=== PATIENT | male | born 1970 | race American Indian/Alaskan Native ===

== ENCOUNTER 2017-08-04 15:15 | Inpatient (IN) | payer SELFPAY ==
--- NOTE | 2017-08-04 15:54 | Cat Scan Report ---
HEAD CT WITHOUT CONTRAST INDICATION: Neurologic deficits less than 6 hours or symptoms present upon awakening. 98N. COMPARISON: None similar at this institution. FINDINGS: Noncontrast head CT demonstrates symmetric ventricles and sulci without acute or recent infarct, hemorrhage, mass effect or midline shift. No abnormal extra-axial fluid collections. Posterior fossa structures and basilar cisterns within normal limits. Moderate bilateral ethmoid and mild bilateral maxillary, sphenoid and some frontal sinus mucosal thickening. Intact calvarium. Normal scalp soft tissues. Normal imaged eye globes. Partially empty sella. CONCLUSION: No definite acute intracranial CT abnormality with pansinusitis, as above. MRI is more sensitive for detection of acute infarct and may be useful for further evaluation in the setting of a focal neurologic deficit. I phoned the above results to Dr. Pierre in the ER, 3:45 PM, 08/04/2017. Thank you for the opportunity to participate in this patient's care.
[2017-08-04] MEDS ORDERED: REGLAN IV ONE (15:55)
[2017-08-04] MEDS ORDERED: APRESOLINE IV ONE (15:55)
--- NOTE | 2017-08-04 15:55 | Emergency Department Report ---
ED Neuro Deficit HPI - General Chief Complaint: Neuro Symptoms/Deficit Stated Complaint: RIGHT SIDE NUMBNESS Time Seen by Provider: 08/04/17 15:38 Source: patient, RN notes reviewed Mode of arrival: Ambulatory Limitations: No Limitations - History of Present Illness Initial Comments: This is a 46-year-old male who was previously unknown to this provider. He has a past medical history of hypertension, elevated blood pressure. The patient presents to the ER with a complaint of right-sided weakness and numbness, facial droop, headache, chest pain, and abdominal numbness. The headache is frontal, started this morning, is not sudden or thunderclap in nature, not maximal in intensity within the first hour. Patient then reports that at approximately 2:15 PM, he developed right-sided facial droop, right arm numbness, right leg numbness, central chest pain that did not radiate to the back, arms, neck, and abdominal "numbness." No recent aspirin use, no recent cocaine use, symptoms have been constant, did not radiate anywhere, and have no exacerbating or relieving factors. He denies recent trauma, denies recent chiropractic manipulation. -: Sudden Location: right face, right arm, right leg Presenting Symptoms: Present: Weak/Paralyzed One Side. Absent: Sudden, Severe Headache, Blurred/Loss of Vision, Facial Droop/Numbness, Unable to Speak Clearly , Altered Mental Status History of same: No Place: home Severity: moderate Quality: tingling Improves With: none Worsens With: none On Anticoagulants: No Context: sudden onset Associated Symptoms: chest pain, headaches. denies: cough, diaphoresis, fever/ chills, loss of appetite, malise, nausea/vomiting, vertigo, seizures, shortness of breath, syncope, weakness - Related Data Home Medications: Home Medications Medication Instructions Recorded Confirmed Last Taken No Known Home Medications [No 08/04/17 08/04/17 Unknown Reported Home Medications] Allergies/Adverse Reactions: Allergies Allergy/AdvReac Type Severity Reaction Status Date / Time No Known Allergies Allergy Unverified 08/04/17 15:25 ED Review of Systems ROS: Stated complaint: RIGHT SIDE NUMBNESS Other details as noted in HPI Constitutional: denies: fever Eyes: denies: eye discharge, vision change ENT: denies: epistaxis Respiratory: denies: cough Cardiovascular: chest pain Gastrointestinal: abdominal pain Musculoskeletal: denies: back pain Neurological: headache, weakness, numbness, paresthesias Psychiatric: as per HPI ED Past Medical Hx - Past Medical History Hx Hypertension: Yes - Surgical History Past Surgical History?: No - Social History Smoking Status: Current Every Day Smoker Substance Use Type: Alcohol - Medications Home Medications: Home Medications Medication Instructions Recorded Confirmed Last Taken Type No Known Home Medications [No 08/04/17 08/04/17 Unknown History Reported Home Medications] ED Neuro Physical Exam - General Limitations: No Limitations General appearance: alert, in no apparent distress Suspected Stroke: Yes - Head Head exam: Present: atraumatic, normocephalic - Eye Eye exam: Present: normal appearance, PERRL, EOMI, other (visual acuity intact to finger counting, color perception, reading at a close distance). Absent: nystagmus - ENT ENT exam: Present: normal exam, normal orophraynx, mucous membranes moist, normal external ear exam - Neck Neck exam: Present: normal inspection, full ROM, other (there is no carotid bruit) - Respiratory Respiratory exam: Present: normal lung sounds bilaterally. Absent: respiratory distress - Cardiovascular Cardiovascular Exam: Present: regular rate, normal rhythm, normal heart sounds. Absent: bradycardia, tachycardia, irregular rhythm, systolic murmur, diastolic murmur, rubs, gallop - GI/Abdominal GI/Abdominal exam: Present: soft, normal bowel sounds. Absent: distended, tenderness, guarding, rebound, rigid, pulsatile mass - Rectal Rectal exam: Present: deferred - Extremities Exam Extremities exam: Present: normal inspection, full ROM, normal capillary refill , other (2+ pulses noted in the bilateral upper and lower extremities). Absent : tenderness, pedal edema, joint swelling, calf tenderness - Back Exam Back exam: Present: normal inspection, full ROM. Absent: tenderness, CVA tenderness (R), paraspinal tenderness, vertebral tenderness - Neurological Exam Neurological exam: Present: alert, oriented X3, motor sensory deficit (there is 4.5-5 strength right upper extremity, right lower extremity. Sensation decreased to light touch right upper extremity, right lower extremity). Absent : CN II-XII intact (there is right-sided facial droop. Extraocular movements are intact. Phonates normally. Hearing intact bilaterally. Shoulder shrug intact bilaterally. Tongue is midline. Sensation intact to light touch in the bilateral V1, V2, V3 distribution. Symmetric wrinkling of the forehead bilaterally) - NIHSS Assessment Interval: Baseline 1a. Level of Consciousness: alert 1b. LOC Questions: answers correctly 1c. LOC Commands: performs tasks correctly 2. Best Gaze: normal 3. Visual: no visual loss 4. Facial Palsy: partial paralysis 5b. Motor Arm Right: drift 5a. Motor Arm Left: no drift 6a. Motor Leg Left: no drift 6b. Motor Leg Right: no drift 7. Limb Ataxia: absent 8. Sensory: mild/moderate sensory loss 9. Best Language: no aphasia 10. Dysarthria: normal 11. Extinction/Inattention: no abnormality Total Score: 4 Stroke Severity: Minor Stroke - Psychiatric Psychiatric exam: Present: normal affect, normal mood - Skin Skin exam: Present: warm, dry, intact, normal color. Absent: rash ED Course Vital Signs 08/04/17 08/04/17 08/04/17 15:18 15:47 15:55 Temperature 98 F Pulse Rate 80 84 Respiratory 18 19 16 Rate Blood Pressure 159/114 O2 Sat by Pulse 100 99 99 Oximetry 08/04/17 08/04/17 08/04/17 16:01 16:15 16:54 Temperature Pulse Rate 102 H 77 Respiratory 17 12 Rate Blood Pressure 142/106 141/94 141/94 O2 Sat by Pulse 95 98 98 Oximetry 08/04/17 08/04/17 08/04/17 17:00 17:15 17:30 Temperature Pulse Rate Respiratory Rate Blood Pressure 134/98 158/102 163/102 O2 Sat by Pulse 98 99 100 Oximetry 08/04/17 17:45 Temperature Pulse Rate Respiratory Rate Blood Pressure 141/94 O2 Sat by Pulse 97 Oximetry - Reevaluation(s) Reevaluation #1: 08/04/17 16:29 Differential diagnosis, including but not limited to: Aortic dissection, carotid disease, carotid dissection, acute coronary syndrome, ischemic stroke, hemorrhagic stroke, complex migraine Assessment and plan: 46-year-old male with a primary complaint of headache, right-sided weakness and numbness, right-sided facial droop, also endorses chest pain, abdominal numbness and discomfort. Has no pulmonary embolus or DVT risk factors. EKG is pending at this time. Equal pulses in the bilateral upper and lower extremities. Given that patient is endorsing chest pain, abdominal discomfort with neurologic symptoms, aortic dissection must be excluded. Given that aortic dissection has not been excluded with the available imaging, he is not a TPA candidate or thrombolysis candidate. I have discussed the patient's physical exam findings and case with the consulting neurologist, Dr. OLSON; She will interview the patient via the stroke robot, but recommends emergent CT angiogram of the head and neck, and also agrees with plan to obtain CT imaging of the chest abdomen and pelvis. I have made numerous phone calls the labs requested expedite creatinine so patient may get the CT angiogram. I'm currently awaiting results of the CTA. I am also awaiting results of the patient's EKG. His headache will be treated with Reglan and his hypertension will be treated with hydralazine. Reevaluation #2: 08/04/17 17:[address] interpretation of the head and neck. Contacted the [facility] radiology group, they report they have not received the images. Contacted CAT scan, and I have requested again that images be sent over in an expedited fashion. Reevaluation #3: 08/04/17 18:00 X-ray chest negative. Neurology, Dr. suh, interviewing patient. cta reads still pending Reevaluation #4: 08/04/17 18:37 CT angiogram of the head and neck essentially negative. Patient refused/ declined TPA after risks, benefits were discussed with Dr. Olson, consulting stroke neurology. She recommends admission for further evaluation. Aspirin ordered. Reevaluation #5: 08/04/17 19:14 CT scan of the chest, abdomen, pelvis negative for aortic dissection. Aspirin ordered, Dr. Pedro accepted the patient to the medical service. - Lab Data Result diagrams: 08/04/17 15:45 08/04/17 15:45 Lab Results 08/04/17 08/04/17 08/04/17 Range/Units 15:45 15:45 15:45 WBC 8.5 (4.5-11.0) K/mm3 RBC 4.78 (3.65-5.03) M/mm3 Hgb 15.7 H (11.8-15.2) gm/dl Hct 46.9 H (35.5-45.6) % MCV 98 H (84-94) fl MCH 33 H (28-32) pg MCHC 34 (32-34) % RDW 14.5 (13.2-15.2) % Plt Count 271 (140-440) K/mm3 Lymph % (Auto) 29.9 (13.4-35.0) % [place] % (Auto) 7.7 H (0.0-7.3) % Eos % (Auto) 4.3 (0.0-4.3) % Baso % (Auto) 0.4 (0.0-1.8) % Lymph # 2.6 (1.2-5.4) K/mm3 [place] # 0.7 (0.0-0.8) K/mm3 Eos # 0.4 (0.0-0.4) K/mm3 Baso # 0.0 (0.0-0.1) K/mm3 Seg Neutrophils % 57.7 (40.0-70.0) % Seg Neutrophils # 4.9 (1.8-7.7) K/mm3 PT 12.1 L (12.2-14.9) Sec. INR 0.86 L (0.87-1.13) APTT 26.9 (24.2-36.6) Sec. Thrombin Time (15.1-19.6) Sec. Sodium 139 (137-145) mmol/L Potassium 4.0 (3.6-5.0) mmol/L Chloride 100.7 (98-107) mmol/L Carbon Dioxide 26 (22-30) mmol/L Anion Gap 16 mmol/L BUN 8 L (9-20) mg/dL Creatinine 1.2 (0.8-1.5) mg/dL Estimated GFR > 60 ml/min BUN/Creatinine Ratio 7 % Glucose 99 (75-100) mg/dL Calcium 9.5 (8.4-10.2) mg/dL Troponin T < 0.010 (0.00-0.029) ng/mL 08/04/17 Range/Units 15:45 WBC (4.5-11.0) K/mm3 RBC (3.65-5.03) M/mm3 Hgb (11.8-15.2) gm/dl Hct (35.5-45.6) % MCV (84-94) fl MCH (28-32) pg MCHC (32-34) % RDW (13.2-15.2) % Plt Count (140-440) K/mm3 Lymph % (Auto) (13.4-35.0) % [place] % (Auto) (0.0-7.3) % Eos % (Auto) (0.0-4.3) % Baso % (Auto) (0.0-1.8) % Lymph # (1.2-5.4) K/mm3 [place] # (0.0-0.8) K/mm3 Eos # (0.0-0.4) K/mm3 Baso # (0.0-0.1) K/mm3 Seg Neutrophils % (40.0-70.0) % Seg Neutrophils # (1.8-7.7) K/mm3 PT (12.2-14.9) Sec. INR (0.87-1.13) APTT (24.2-36.6) Sec. Thrombin Time 16.0 (15.1-19.6) Sec. Sodium (137-145) mmol/L Potassium (3.6-5.0) mmol/L Chloride (98-107) mmol/L Carbon Dioxide (22-30) mmol/L Anion Gap mmol/L BUN (9-20) mg/dL Creatinine (0.8-1.5) mg/dL Estimated GFR ml/min BUN/Creatinine Ratio % Glucose (75-100) mg/dL Calcium (8.4-10.2) mg/dL Troponin T (0.00-0.029) ng/mL - EKG Data -: EKG Interpreted by Me EKG shows normal: sinus rhythm Rate: normal When compared to previous EKG there are: previous EKG unavailable 08/04/17 19:15 Sinus, 70 bpm, borderline left axis deviation, benign early repolarization, abnormal EKG, normal intervals, not consistent with a STEMI. There is no prior for comparison. - Radiology Data Radiology results: pending, report reviewed interpreted by me: X-ray of the chest, interpreted by myself: No acute disease Noncontrast CT scan of the brain is negative for acute disease - Core Measures Measure Exclusions: not indicated - Thrombolytic Inclusion/Exclusion Thrombolytic Inclusion Criteria: Ischemic Stroke Onset< 3h Critical care attestation.: If time is entered above; I have spent that time in minutes in the direct care of this critically ill patient, excluding procedure time. ED Disposition Clinical Impression: Facial droop, Numbness on right side Chest pain Qualifiers: Chest pain type: other chest pain Qualified Code(s): R07.89 - Other chest pain Disposition: DC-09 OP ADMIT IP TO THIS HOSP Is pt being admited?: Yes Does the pt Need Aspirin: Yes Condition: Good Instructions: Chest Pain (ED) Referrals: PRIMARY CARE, [Primary Care Provider] - 3-5 Days
[2017-08-04 15:58] LABS: Basophils % (Auto) 0.4 % (0.0-1.8); Eosinophils # (Auto) 0.4 K/mm3 (0.0-0.4); Eosinophils % (Auto) 4.3 % (0.0-4.3); Hematocrit 46.9 % (35.5-45.6); Hemoglobin 15.7 gm/dl (11.8-15.2); Lymphocytes # (Auto) 2.6 K/mm3 (1.2-5.4); Lymphocytes % (Auto) 29.9 % (13.4-35.0); Mean Corpuscular HGB Conc 34 % (32-34); Mean Corpuscular Hemoglobin 33 pg (28-32); Mean Corpuscular Volume 98 fl (84-94); Monocytes # (Auto) 0.7 K/mm3 (0.0-0.8); Monocytes % (Auto) 7.7 % (0.0-7.3); Platelet Count 271 K/mm3 (140-440); Red Blood Count 4.78 M/mm3 (3.65-5.03); Red Cell Distribution Width 14.5 % (13.2-15.2)
[2017-08-04 16:09] LABS: INR 0.86 (0.87-1.13)
[2017-08-04 16:11] LABS: Partial Thromboplastin Time 26.9 Sec. (24.2-36.6)
[2017-08-04 16:16] LABS: BUN/Creatinine Ratio 7; Blood Urea Nitrogen 8 mg/dL (9-20); Calcium 9.5 mg/dL (8.4-10.2); Hemolysis Index 17
--- NOTE | 2017-08-04 17:55 | XRay Report ---
FINAL REPORT EXAM: XR CHEST 1V AP HISTORY: cp htn TECHNIQUE: AP portable view of the chest PRIORS: None. FINDINGS: Lines, tubes, and devices: N/A Lungs and pleura: Trachea is normal in position. Lungs are clear of infiltrate, pleural effusion, vascular congestion, or pneumothorax. Cardiomediastinal silhouette: Cardiac and mediastinal silhouettes are unremarkable. Other: Bony structures are intact. IMPRESSION: No acute cardiopulmonary process seen.
[2017-08-04] MEDS ORDERED: REGLAN ONE (18:09)
--- NOTE | 2017-08-04 18:22 | Cat Scan Report ---
FINAL REPORT PROCEDURE: CT ANGIO HEAD AND NECK TECHNIQUE: Computerized tomographic angiography of the head and neck was performed after the IV injection of iodinated nonionic contrast including image processing. The image data was postprocessed using 2-dimensional multiplanar reformatted (MPR) and 3-dimensional (MIP and/or volume rendered) techniques. HISTORY: CVA with dissection. COMPARISON: No prior studies are available for comparison. FINDINGS: Sinuses: Scattered ethmoid sinusitis. Mild scattered bilateral maxillary mucoperiosteal thickening. Non vascular cervical structures: Lucencies in the right frontal bone likely arachnoid granulations. Mild multilevel degenerative changes of the cervical spine, most evident at C4-5. Cerebrum: No evidence of hemorrhage, acute ischemia or mass. Cerebellum: No evidence of hemorrhage, acute ischemia or mass. Subarachnoid spaces and ventricles: Normal. Aortic arch: Artifact from the SVC limits evaluation, there are scattered areas of linear low-attenuation signal intensity with slightly more complex low-attenuation signal intensity about the visualized ascending and descending thoracic aorta. Right carotid artery: Normal. Left carotid artery: Normal. Vertebral arteries: Artifact limits evaluation of the proximal left vertebral artery. Aneurysms: None. Dural sinuses: Normal. IMPRESSION: No CTA evidence of significant stenosis, aneurysm, or dissection in the vessels of the head and neck. Artifact limits evaluation of the proximal left vertebral artery. Artifact from the SVC limits evaluation, there are scattered areas of linear low signal intensity in the thoracic aorta with slightly more complex low signal intensity about the descending thoracic aorta. Findings likely artifact, recommend CTA of the chest if there is continued clinical concern for aortic pathology/subtle dissection. Mild sinusitis. Critical test stroke protocol discussed by telephone with Dr. Rizzo at 5:15 p.m. central standard time on 08/04/2017.
[2017-08-04] MEDS ORDERED: BABY ASPIRIN PO ONE (18:39)
--- NOTE | 2017-08-04 18:54 | Cat Scan Report ---
FINAL REPORT PROCEDURE: CT ABDOMEN PELVIS W CON TECHNIQUE: Computerized axial tomography of the abdomen and pelvis was performed after the IV injection of iodinated nonionic contrast. HISTORY: abd pain, numbness, cva COMPARISON: No prior studies are available for comparison. FINDINGS: Lower Lung onofre: There is minimal dependent atelectasis. Lung bases otherwise are clear. Upper Abdomen: There is subtle increased density dependently in the gallbladder. I cannot exclude sludge or gallstones. Gallbladder is otherwise unremarkable. The liver showed no focal abnormalities. The adrenal glands, the pancreas and spleen are unremarkable. Kidneys, Ureters and Urinary bladder: No abnormalities are seen. Urinary bladder is only partially filled. Retroperitoneum: Abdominal aorta appears normal. Nonspecific subcentimeter lymph nodes are seen in the retroperitoneum. No pathologically enlarged lymph nodes are identified. Bowel: No focal bowel loop abnormalities are seen. No evidence of bowel obstruction ascites or free intraperitoneal gas. Normal-appearing appendix is seen in the right lower quadrant. Minimal umbilical hernia visualized containing adipose tissue. No herniated loops of bowel are seen. Reproductive organs: Prostate gland does not appear to be enlarged. Other: No acute bony abnormalities are identified. IMPRESSION: Subtle increased density dependently in the gallbladder. I cannot exclude sludge or noncalcified gallstones. Gallbladder ultrasound may be helpful for further evaluation. No acute abnormalities are identified.
--- NOTE | 2017-08-04 19:05 | Cat Scan Report ---
FINAL REPORT PROCEDURE: CT CHEST W CON TECHNIQUE: Computerized axial tomography of the chest was performed without contrast material. This study is performed without intravenous contrast and the sensitivity for pathology, including neoplasms, adenopathy, abscess, pulmonary embolism and aortic dissection, is reduced. HISTORY: cp with neurologic symptoms COMPARISON: No prior studies are available for comparison. TECHNICAL QUALITY: Satisfactory. FINDINGS: Pericardium: No evidence of pericardial effusion. Thoracic aorta: There is mild aneurysmal dilatation of the ascending thoracic aorta measuring 4.4 x 4.1 centimeter. No dissection is visualized. Coronary arteries: Coronary arteries appear to show minimal calcification indicating atherosclerotic disease. Mediastinum and hilar regions: Nonspecific subcentimeter lymph nodes are visualized. No pathologically enlarged lymph nodes or masses are identified. Lung Arshad: There is minimal dependent atelectasis. The lungs are otherwise clear. Upper abdomen: Subtle increased density seen in the dependent portion the gallbladder. This could be an artifact from beam hardening. Gallbladder is otherwise unremarkable. Upper abdomen shows no acute abnormality. Other: No acute bony abnormalities are seen. IMPRESSION: Mild aneurysmal dilatation ascending thoracic aorta. No dissection is seen. Minimal calcified plaquing seen in the coronary arteries indicating atherosclerotic disease. Minimal dependent atelectasis visualized. Lungs otherwise are clear. Subtle increased density in the dependent portion the gallbladder. I cannot exclude sludge or noncalcified gallstones. Gallbladder ultrasound may be helpful for further evaluation..
[2017-08-04] MEDS ORDERED: DULCOLAX PR PRN (22:29)
[2017-08-04] MEDS ORDERED: ZOFRAN IV PRN (22:29)
[2017-08-04] MEDS ORDERED: PHENERGAN PR PRN (22:29)
[2017-08-04] MEDS ORDERED: REGLAN PO PRN (22:29)
[2017-08-04] MEDS ORDERED: AMBIEN PO PRN (22:29)
[2017-08-04] MEDS ORDERED: SODIUM CHLORIDE FLUSH SYRINGE 10 ML IV PRN (22:29)
[2017-08-04] MEDS ORDERED: TYLENOL PO PRN (22:29)
[2017-08-04] MEDS ORDERED: NORCO 5/325 PO PRN (22:29)
[2017-08-04] MEDS ORDERED: MILK OF MAGNESIA PO PRN (22:29)
[2017-08-04] MEDS ORDERED: APRESOLINE IV PRN (22:36)
--- NOTE | 2017-08-05 00:20 | History and Physical Report ---
History of Present Illness Date of examination: 08/04/17 Date of admission: 08/04/17 22:37 Chief complaint: right-sided numbness History of present illness: Patient is a 46 year old -[place] male, who presented with right-sided numbness, which started 45 minutes prior to presentation to the ED. He has associated headaches and dizziness. He denies slurred speech, facial drooping, extremity weakness, nausea, vomiting, abnormal gait, syncope or loss of consciousness. No chest pain, shortness of breath or palpitation Past History Past Medical History: hypertension Past Surgical History: No surgical history Social history: smoking (for 25 years), other (admits to occasional alcohol use , but denies illicit drug use) Family history: other (reviewed and noncontributory) Medications and Allergies Allergies Allergy/AdvReac Type Severity Reaction Status Date / Time No Known Allergies Allergy Unverified 08/04/17 15:25 Home Medications Medication Instructions Recorded Confirmed Last Taken Type No Known Home Medications [No 08/04/17 08/04/17 Unknown History Reported Home Medications] Active Meds: Active Medications Acetaminophen (Tylenol) 650 mg PO Q4H PRN PRN Reason: Pain, Mild (1-3) Acetaminophen/Hydrocodone Bitart ([place] 5/325) 2 each PO Q6H PRN PRN Reason: Pain, Moderate (4-6) Aspirin (Aspirin) 325 mg PO QDAY [facility] Bisacodyl (Dulcolax) 10 mg LA QDAY PRN PRN Reason: Constipation Hydralazine HCl (Apresoline) 10 mg IV Q4H PRN PRN Reason: Blood Pressure Magnesium Hydroxide (Milk Of Magnesia) 30 ml PO Q4H PRN PRN Reason: Constipation Metoclopramide HCl (Reglan) 10 mg PO Q6H PRN PRN Reason: Nausea And Vomiting Ondansetron HCl (Zofran) 4 mg IV Q8H PRN PRN Reason: N/V unrelieved by Reglan Promethazine HCl (Phenergan) 25 mg LA Q6H PRN PRN Reason: Nausea And Vomiting Sodium Chloride (Sodium Chloride Flush Syringe 10 Ml) 10 ml IV PRN PRN PRN Reason: LINE FLUSH Zolpidem Tartrate (Ambien) 5 mg PO QHS PRN PRN Reason: Insomnia Review of Systems All systems: negative (except as documented in the HPI, all other systems were reviewed and negative) Exam - Constitutional Vitals: Temp Pulse Resp BP Pulse Ox 98 F 82 19 139/90 91 08/04/17 15:18 08/04/17 23:00 08/04/17 23:00 08/04/17 23:00 08/04/17 23:00 General appearance: Present: no acute distress, well-nourished - EENT Eyes: Present: PERRL, EOM intact ENT: hearing intact, clear oral mucosa - Neck Neck: Present: supple, normal ROM - Respiratory Respiratory effort: normal Respiratory: bilateral: CTA - Cardiovascular Rhythm: regular Heart Sounds: Present: S1 & S2 - Extremities Extremities: pulses symmetrical, No edema Peripheral Pulses: within normal limits - Abdominal General gastrointestinal: Present: soft, non-tender, non-distended, normal bowel sounds - Integumentary Integumentary: Present: warm, dry - Musculoskeletal Musculoskeletal: gait normal, strength equal bilaterally - Psychiatric Psychiatric: appropriate mood/affect, intact judgment & insight - Neurologic Neurologic: CNII-XII intact, moves all extremities Results - Labs CBC & Chem 7: 08/04/17 15:45 08/04/17 15:45 Labs: Laboratory Last Values WBC 8.5 K/mm3 (4.5-11.0) 08/04/17 15:45 RBC 4.78 M/mm3 (3.65-5.03) 08/04/17 15:45 Hgb 15.7 gm/dl (11.8-15.2) H 08/04/17 15:45 Hct 46.9 % (35.5-45.6) H 08/04/17 15:45 MCV 98 fl (84-94) H 08/04/17 15:45 MCH 33 pg (28-32) H 08/04/17 15:45 MCHC 34 % (32-34) 08/04/17 15:45 RDW 14.5 % (13.2-15.2) 08/04/17 15:45 Plt Count 271 K/mm3 (140-440) 08/04/17 15:45 Lymph % (Auto) 29.9 % (13.4-35.0) 08/04/17 15:45 [place] % (Auto) 7.7 % (0.0-7.3) H 08/04/17 15:45 Eos % (Auto) 4.3 % (0.0-4.3) 08/04/17 15:45 Baso % (Auto) 0.4 % (0.0-1.8) 08/04/17 15:45 Lymph # 2.6 K/mm3 (1.2-5.4) 08/04/17 15:45 [place] # 0.7 K/mm3 (0.0-0.8) 08/04/17 15:45 Eos # 0.4 K/mm3 (0.0-0.4) 08/04/17 15:45 Baso # 0.0 K/mm3 (0.0-0.1) 08/04/17 15:45 Seg Neutrophils % 57.7 % (40.0-70.0) 08/04/17 15:45 Seg Neutrophils # 4.9 K/mm3 (1.8-7.7) 08/04/17 15:45 PT 12.1 Sec. (12.2-14.9) L 08/04/17 15:45 INR 0.86 (0.87-1.13) L 08/04/17 15:45 APTT 26.9 Sec. (24.2-36.6) 08/04/17 15:45 Thrombin Time 16.0 Sec. (15.1-19.6) 08/04/17 15:45 Sodium 139 mmol/L (137-145) 08/04/17 15:45 Potassium 4.0 mmol/L (3.6-5.0) 08/04/17 15:45 Chloride 100.7 mmol/L (98-107) 08/04/17 15:45 Carbon Dioxide 26 mmol/L (22-30) 08/04/17 15:45 Anion Gap 16 mmol/L 08/04/17 15:45 BUN 8 mg/dL (9-20) L 08/04/17 15:45 Creatinine 1.2 mg/dL (0.8-1.5) 08/04/17 15:45 Estimated GFR > 60 ml/min 08/04/17 15:45 BUN/Creatinine Ratio 7 % 08/04/17 15:45 Glucose 99 mg/dL (75-100) 08/04/17 15:45 Calcium 9.5 mg/dL (8.4-10.2) 08/04/17 15:45 Troponin T < 0.010 ng/mL (0.00-0.029) 08/04/17 15:45 Assessment and Plan Assessment and plan: Right-sided paresthesia, rule out acute stroke -Start stroke protocol -Do further investigative testing with MRI brain, carotid doppler ultrasound and echocardiogram Aneurysmal dilatation of ascending thoracic aorta measuring 4.44.1 per imaging -For outpatient follow-up Uncontrolled hypertension -Start prn antihypertensive per stroke protocol Prophylaxis -DVT prophylaxis with SCD 38 minutes spent in coordinating care
[2017-08-05 00:24] LABS: Amphetamine Screen,Urine PRESUMPTIVE NEGATIVE; Benzodiazepines Screen,Urine PRESUMPTIVE NEGATIVE; Cocaine Screen,Urine PRESUMPTIVE NEGATIVE; Methadone Screen,Urine PRESUMPTIVE NEGATIVE; Opiate Screen,Urine PRESUMPTIVE NEGATIVE
[2017-08-05 00:42] LABS: Cannabinoid Screen,Urine PRESUMPTIVE POSITIVE
[2017-08-05 05:23] LABS: Chol/HDL Ratio 3.21 %
--- NOTE | 2017-08-05 08:25 | Event Note ---
Date: 08/05/17 Patient admitted today for right-sided weakness appeared to be well-developed for acute stroke. MRI reports of the brain, pending. CTA showed evidence of aneurysmal dilatation of the ascending aorta. We will obtain a vascular surgical consult
[2017-08-05] MEDS: ASPIRIN PO SCH (11:18)
--- NOTE | 2017-08-05 11:43 | Magnetic Resonance Report ---
MRI BRAIN WITHOUT CONTRAST: 08/04/17 22:37:00 CLINICAL: Stroke. TECHNIQUE: Axial diffusion, T1, T2, FLAIR, gradient echo T2*, and sagittal T1 sequences on a 1.5 Mikaela magnet. FINDINGS: The ventricles and sulci are normal for age. A single tiny focus of restricted diffusion involves the left postcentral gyrus. It demonstrates very mild hyperintense signal on FLAIR. No other restricted diffusion. No mass or mass effect. A single right occipital lobe chronic micro-bleed on the gradient echo sequence. No acute or subacute hemorrhage, edema or extra-axial collection. Normal pituitary and optic chiasm. The brainstem and cerebellum are normal. Intact vascular flow voids. Moderate bilateral ethmoid sinusitis. Mild bilateral maxillary equal periosteal thickening. The orbits, and soft tissues are normal. Normal calvarium and skull base. IMPRESSION: 1. A single tiny nonhemorrhagic subacute left parietal lobe cortical infarct involving the postcentral gyrus. 2. A single tiny right occipital lobe chronic microbleed. 3. Sinusitis.
--- NOTE | 2017-08-05 16:33 | Event Note ---
Date: 08/05/17 vascular surgery consulted for ascending thoracic aneurysm 4.4cm. This is generally CT surgery area of expertise, however, ascending thoracic aorta is called aneurysmal >4.5cm. This patient does not need any urgent vascular or CT surgery intervention. He may benefit from f/u with CT surgery as an outpatient.
[2017-08-06 07:10] LABS: Basophils % (Auto) 0.2 % (0.0-1.8); Eosinophils # (Auto) 0.3 K/mm3 (0.0-0.4); Eosinophils % (Auto) 3.7 % (0.0-4.3); Hematocrit 42.7 % (35.5-45.6); Hemoglobin 14.5 gm/dl (11.8-15.2); Lymphocytes % (Auto) 34.9 % (13.4-35.0); Mean Corpuscular HGB Conc 34 % (32-34); Mean Corpuscular Hemoglobin 33 pg (28-32); Mean Corpuscular Volume 97 fl (84-94); Monocytes # (Auto) 0.7 K/mm3 (0.0-0.8); Monocytes % (Auto) 8.7 % (0.0-7.3); Platelet Count 252 K/mm3 (140-440); Red Blood Count 4.41 M/mm3 (3.65-5.03)
[2017-08-06 07:15] LABS: INR 0.87 (0.87-1.13)
[2017-08-06 08:15] LABS: Alanine Aminotransferase 20 units/L (7-56); Albumin 3.7 g/dL (3.9-5); BUN/Creatinine Ratio 8; Blood Urea Nitrogen 9 mg/dL (9-20); Calcium 9.1 mg/dL (8.4-10.2); Hemolysis Index 7
[2017-08-06] MEDS ORDERED: NORVASC PO SCH (10:00)
[2017-08-06] MEDS: ASPIRIN PO SCH (10:52)
[2017-08-06 17:09] VITALS: BP 150/88
--- NOTE | 2017-08-06 17:13 | Discharge Summary ---
Providers - Providers Date of Admission: 08/04/17 22:37 Attending physician: IRAIS RIDDLE 08/04/17 22:29 Occupational Therapy Evaluate and Treat [CONS] Routine Comment: Reason For Exam: Neuro deficits Physical Therapy Evaluation and Treat [CONS] Routine Comment: Reason For Exam: Neuro deficits 08/05/17 08:26 Consult to Physician [CONS] Routine Comment: Consulting Provider: MARIELA MARSHALL Physician Instructions: Reason For Exam: ascending aorta aneurysm - 4.4 cm Primary care physician: [facility]OD[facility]IST Hospitalization Reason for admission: paraethesia Condition: Good Hospital course: Final diagnoses -Acute stroke -Aneurysmal dilatation of the ascending thoracic aorta measuring 4.4 x 4.1cm -Uncontrolled HTN, improved -Hyperlipidemia -Tobacco abuse, counseled Patient was admitted and placed on stroke protocol. Further investigative testing done with MRI brain confirmed acute infarct in the right occipital and left parietal lobes. For the aneurysmal dilatation of the ascending thoracic aorta, vascular surgeon was consulted; however outpatient follow-up was recommended. Patient was also started on oral anti-hypertensive for blood pressure control. Subsequently, he improved clinically and he was then deemed stable for discharge with clinic follow up. Disposition: DC-01 TO HOME OR SELFCARE Core Measure Documentation - Palliative Care Palliative Care/ Comfort Measures: Not Applicable - Core Measures Any of the following diagnoses?: stroke - Stroke Discharge Requirements Statin for LDL = or >70 mg/dl on DC: Yes Anticoag for atrial fib/atrial flutter: Not Applicable Antithrombotic for ischemic stroke: Yes Exam - Constitutional Vitals: Temp Pulse Resp BP Pulse Ox 98.0 F 67 20 140/90 99 08/06/17 09:11 08/06/17 09:11 08/06/17 09:11 08/06/17 10:52 08/06/17 09:11 General appearance: Present: no acute distress - EENT Eyes: Present: PERRL, EOM intact ENT: hearing intact, clear oral mucosa - Neck Neck: Present: supple, normal ROM - Respiratory Respiratory effort: normal Respiratory: bilateral: CTA - Cardiovascular Heart Sounds: Present: S1 & S2. Absent: rub, click - Extremities Extremities: pulses symmetrical, No edema Peripheral Pulses: within normal limits - Abdominal General gastrointestinal: Present: soft, non-tender, non-distended, normal bowel sounds Male genitourinary: Present: normal - Integumentary Integumentary: Present: clear, warm, dry - Musculoskeletal Musculoskeletal: gait normal, strength equal bilaterally - Psychiatric Psychiatric: appropriate mood/affect, intact judgment & insight - Neurologic Neurologic: CNII-XII intact, moves all extremities Plan Follow up with: PRIMARY CARE,MD [Primary Care Provider] - 3-5 Days Prescriptions: AtorvaSTATin [Lipitor] 40 mg PO QHS #30 tablet amLODIPine [Norvasc] 5 mg PO QDAY #30 tablet Aspirin [Aspirin TAB] 325 mg PO QDAY #30 tablet
== END 2017-08-06 13:30 | disposition home or self-care (01) | DRG 66 ==
LOC: ED 15:15 → 3A 22:37
PROVIDERS: ADMIT Internal Medicine; ATTEND Internal Medicine
DX: I63.9 Cerebral infarction, unspecified (principal); I10 Essential (primary) hypertension; F17.200 Nicotine dependence, unspecified, uncomplicated; I71.2 Thoracic aortic aneurysm, without rupture; E78.5 Hyperlipidemia, unspecified; Z71.6 Tobacco abuse counseling
CPT/HCPCS: 36415; 70450; 70496; 70498; 70551; 71045; 71260; 74177; 80048; 80053; 80061; 80307; 82962; 83036; 84484; 85025; 85610; 85670; 85730; 93005; 93010; 93306; 93880; 96374; 99406; J2765; Q9967

== ENCOUNTER 2018-02-05 01:43 | Emergency (ER) | payer SELFPAY | END 2018-02-05 01:50 | disposition left against medical advice (07) | LOC: ED 01:43 | DX: M25.511 Pain in right shoulder (principal); Z53.21 Procedure and treatment not carried out due to patient leaving prior to being seen by health care provider ==